=== PATIENT | male | born 1925 | race Caucasian/White ===

== ENCOUNTER → 2017-01-25 | Outpatient (CLI) | payer OTHER ==
[~2017-01-25] MED LIST: ALLEGRA ALLERGY60 MG PO; ALLOPURINOL100 MG PO; ALPRAZOLAM0.25 M2 PO; AMLODIPINE BESYL5 MG PO; AMOX TR-K CLV1 EAC3 PO; AMOX TR-K CLV1 EAC4 PO; ASPIRIN81 M1 PO; ASPIRIN81 M2 PO; CATAPRES0.2 MG PO; CLONIDINE HCL0.1 MG PO; CLONIDINE HCL0.2 MG PO; CORGARD80 MG PO; DEMADEX10 MG PO; DEXILANT30 MG PO; DIGOXIN125 MCG PO; FINASTERIDE5 MG PO; FLEXERIL5 MG PO; FLOMAX0.4 MG PO; FUROSEMIDE20 MG PO; HYDRALAZINE HCL10 MG PO; HYDROCODON-ACE1 EAC1 PO; LIPITOR20 MG PO; LOPRESSOR50 MG PO; LORTAB 7.5/51 TABLET PO; LOW DOSE ASPIRI81 M2 PO; MECLIZINE HCL25 MG PO; NADOLOL80 MG PO; NASONEX17 GM BOTH NARES; NEXIUM40 MG PO; ONDANSETRON HCL4 MG PO; OXAZEPAM30 MG PO; PHENAZOPYRIDIN200 MG PO; PHENERGAN-CODE120 ML PO; PREVACID30 MG PO; PROTONIX40 MG PO; QUETIAPINE FUMA50 MG PO; RANITIDINE HCL150 M1 PO; RANITIDINE HCL150 MG PO; SINGULAIR10 MG PO; TORSEMIDE20 MG PO; TRAMADOL HCL50 MG PO; TYLENOL WITH C1 EACH PO; XANAX0.25 MG PO; ZOLPIDEM TARTRAT5 MG PO; ZYLOPRIM100 MG PO
== END | disposition home or self-care (01) ==
LOC: MRI 13:12 → RAD 13:30
DX: M51.06 Intervertebral disc disorders with myelopathy, lumbar region (principal); R26.89 Other abnormalities of gait and mobility
CPT/HCPCS: 72148

== ENCOUNTER → 2017-05-30 | Outpatient (CLI) | payer OTHER | END | disposition home or self-care (01) | DX: R13.11 Dysphagia, oral phase (principal); R13.13 Dysphagia, pharyngeal phase; J18.9 Pneumonia, unspecified organism | CPT/HCPCS: 92611 GN; G8996 GN; G8997 GN; G8998 GN ==